=== PATIENT | female | born 1985 | race Two or more races ===

== ENCOUNTER 2017-05-19 13:41 | Emergency (ER) | payer OTHER ==
[2017-05-19 13:52] VITALS: TEMP 98.2; BMI 28.5
[2017-05-19 17:58] LABS: BASO % 0.7 % (0-2.0); EOS % 0.6 % (0-4.5); HEMATOCRIT 40.5 % (32.4-45.2); HEMOGLOBIN 12.9 GM/dL (10.7-15.3); MCH 25.9 pg (25.7-33.7); MCHC 31.8 g/dl (32.0-36.0); MEAN CELL VOLUME 81.5 fl (80-96); MEAN PLT VOLUME 8.2 fl (7.5-11.1); MONO % 7.1 % (3.8-10.2); NEUT % 52.6 % (42.8-82.8); PLATELET COUNT 372 K/MM3 (134-434); RBC 4.97 M/mm3 (3.60-5.2); RDW 15.5 % (11.6-15.6); WHITE BLOOD COUNT 8.6 K/mm3 (4.0-10.0)
[2017-05-19 18:36] LABS: ALBUMIN 4.4 g/dl (3.4-5.0); ANION GAP 8 (8-16); BLOOD UREA NITROGEN 10 mg/dL (7-18); CHLORIDE 105 mmol/L (98-107); CO2 26 mmol/L (21-32); GLUCOSE,RANDOM 106 mg/dL (74-106); POTASSIUM 4.1 mmol/L (3.5-5.1); SODIUM 139 mmol/L (136-145)
[2017-05-19 18:39] LABS: ALK PHOS 105 U/L (45-117); BILIRUBIN,TOTAL 0.3 mg/dL (0.2-1.0); CREATININE 0.7 mg/dL (0.55-1.02); SGOT/AST 23 U/L (15-37); SGPT/ALT 34 U/L (12-78); TOT PROT 8.1 g/dl (6.4-8.2)
--- NOTE | 2017-05-19 18:39 | PDOC ---
History of Present Illness - General Chief Complaint: Pain Stated Complaint: RT SIDE PAIN Time Seen by Provider: 05/19/17 15:56 History Source: Patient Exam Limitations: No Limitations - History of Present Illness Travel History: No Initial Comments: 05/19/17 18:35 32-year-old female presents the ED with complaints of nausea for the past 2 days now associated with right abdominal pain radiating to her right back without fever, chills, change in urine pattern, change in bowel pattern, abdominal distention, headache, or vomiting. Patient states history of cholecystectomy and denies change in menses. Patient denies recent travel, recent illness, recent sick contacts. Timing/Duration: reports: intermittent Quality: reports: mild, cramping Abdominal Pain Onset Location: reports: RLQ, periumbilical Pain Radiation: reports: flank, back Activities at Onset: reports: none Aggravating Factors: improves with: None Alleviating Factors: improves with: None Past History - Travel Traveled outside of the country in the last 30 days: No - Past Medical History Allergies/Adverse Reactions: Allergies Allergy/AdvReac Type Severity Reaction Status Date / Time aspirin Allergy Mild Hives Verified 05/19/17 13:49 mushrooms Allergy Severe Itching Uncoded 05/19/17 13:49 Home Medications: Ambulatory Orders Phentermine HCl 37.5 mg PO DAILY 05/19/17 Asthma: No Cancer: No Cardiac Disorders: No COPD: No Diabetes: No HTN: No Seizures: No Thyroid Disease: No - Surgical History Cholecystectomy: Yes - Suicide/Smoking/Psychosocial Hx Smoking History: Never smoked Have you smoked in the past 12 months: No Number of Cigarettes Smoked Daily: 0 Information on smoking cessation initiated: No Hx Alcohol Use: No Drug/Substance Use Hx: No Substance Use Type: None Hx Substance Use Treatment: No Patient Lives Alone: No Lives with/in: spouse/SO Review of Systems - Review of Systems Able to Perform ROS?: Yes Constitutional: No: Symptoms Reported HEENTM: No: Symptoms Reported Respiratory: No: Symptoms reported Cardiac (ROS): No: Symptoms Reported ABD/GI: Yes: Nausea, Abdominal cramping : No: Symptoms Reported Musculoskeletal: No: Symptoms Reported Integumentary: No: Symptoms Reported Neurological: No: Symptoms reported Endocrine: No: Symptoms Reported Hematologic/Lymphatic: No: Symptoms Reported *Physical Exam - Vital Signs Last Vital Signs Temp Pulse Resp BP Pulse Ox 98.2 F 98 H 18 109/66 100 05/19/17 13:49 05/19/17 13:49 05/19/17 13:49 05/19/17 13:49 05/19/17 13:49 - Physical Exam General Appearance: Yes: Nourished, Appropriately Dressed. No: Apparent Distress HEENT: negative: Pale Conjunctivae Neck: positive: Normal Thyroid, Supple Respiratory/Chest: positive: Lungs Clear, Normal Breath Sounds. negative: Respiratory Distress, Accessory Muscle Use Cardiovascular: positive: Regular Rhythm, Regular Rate. negative: Murmur Gastrointestinal/Abdominal: positive: Soft, Tenderness (no RUQ tenderness. Positive right periumbilical right lower quadrant right suprapubic tenderness. Patient had no rebound no guarding. Noted right flank and mild right CVA tenderness.) Musculoskeletal: positive: CVA Tenderness (R) (mildout) Integumentary: positive: Normal Color, Warm, Moist Neurologic: positive: Motor Strength 5/5 (ambulatory) ED Treatment Course - LABORATORY CBC & Chemistry Diagram: 05/19/17 17:42 05/19/17 17:42 - ADDITIONAL ORDERS Additional order review: 05/19/17 17:42 RBC 4.97 MCV 81.5 MCHC 31.8 L RDW 15.5 MPV 8.2 Neutrophils % 52.6 Lymphocytes % 39.0 D Monocytes % 7.1 Eosinophils % 0.6 Basophils % 0.7 Medical Decision Making - Medical Decision Making 05/19/17 18:39 Patient with sudden onset of right periumbilical pain this morning after eating breakfast. Patient with history of cholecystectomy. Patient treatment reproducible) local pain right lower quadrant without positive McBurney's and mild right suprapubic pain. Will rule out UTI, renal colic, . Patient ordered for CBC, comp, lipase , urinalysis urine . will consider imaging once labs are resulted. 05/19/17 18:42 Laboratory Tests 05/19/17 05/19/17 17:42 17:42 WBC 8.6 Hgb 12.9 Hct 40.5 Plt Count 372 D Neutrophils % 52.6 Sodium 139 Potassium 4.1 Chloride 105 Carbon Dioxide 26 Anion Gap 8 BUN 10 Creatinine 0.7 Random Glucose 106 Total Bilirubin 0.3 D AST 23 ALT 34 05/19/17 19:07 Laboratory Tests 05/19/17 17:08 Lipase 198 *DC/Admit/Observation/Transfer - Referrals Referrals: Joel Morrow MD [Primary Care Provider] - - Patient Instructions - Post Discharge Activity
[2017-05-19 19:11] LABS: HCG,QUALITATIVE URINE NEGATIVE
[2017-05-19 19:13] LABS: URINE APPEARANCE CLEAR; URINE BILIRUBIN NEGATIVE (NEGATIVE); URINE BLOOD 3+ (NEGATIVE); URINE COLOR STRAW; URINE GLUCOSE (UA) NEGATIVE (NEGATIVE); URINE KETONE NEGATIVE (NEGATIVE); URINE LEUK ESTERASE 1+ (NEGATIVE); URINE NITRITE NEGATIVE (NEGATIVE); URINE PROTEIN NEGATIVE (NEGATIVE); URINE UROBILINOGEN NEGATIVE mg/dL (0.2-1.0)
[2017-05-19 19:18] LABS: EPI CELLS RARE /HPF (FEW); URINE MUCUS RARE
--- NOTE | 2017-05-19 19:48 | PDOC ---
ED Treatment Course - LABORATORY CBC & Chemistry Diagram: 05/19/17 17:42 05/19/17 17:42 - ADDITIONAL ORDERS Additional order review: Laboratory Results 05/19/17 05/19/17 05/19/17 18:40 17:42 17:08 Sodium 139 Potassium 4.1 Chloride 105 Carbon Dioxide 26 Anion Gap 8 BUN 10 Creatinine 0.7 Creat Clearance w eGFR > 60 Random Glucose 106 Calcium 9.0 Total Bilirubin 0.3 D AST 23 ALT 34 Alkaline Phosphatase 105 Total Protein 8.1 Albumin 4.4 Lipase 198 Urine Color Straw Urine Appearance Clear Urine pH 5.0 D Ur Specific [place] 1.006 Urine Protein Negative Urine Glucose (UA) Negative Urine Ketones Negative Urine Blood 3+ H Urine Nitrite Negative Urine Bilirubin Negative Urine Urobilinogen Negative Ur Leukocyte Esterase 1+ H Urine WBC (Auto) 12 Urine RBC (Auto) <1 Ur Epithelial Cells Rare Urine Mucus Rare Urine HCG, Qual Negative 05/19/17 17:42 RBC 4.97 MCV 81.5 MCHC 31.8 L RDW 15.5 MPV 8.2 Neutrophils % 52.6 Lymphocytes % 39.0 D Monocytes % 7.1 Eosinophils % 0.6 Basophils % 0.7 Progress Note - Progress Note Progress Note: I have received report from NARCISA Hoffman regarding this patient. Pt's initial chief complaint: nausea with right abdominal pain radiating to right back. Pt's work up completed prior to sign out: labs Pt treatment given from prior staff: none Pt plan to be completed: awaiting UA Dispo: pending Medical Decision Making - Medical Decision Making A/P: 32 y/o female with nausea x 2 days. Initially assessed by NARCISA Hoffman. Her abdominal pain was not reproducible on exam. She is refusing all medication in the ER. NO urinary complaints. UA has resulted with 1+ leuks with 12 WBCs. Will discharge to home with rx for macrobid to treat UTI. Also suggested Motrin for pain. Gave her return precautions for abdominal pain. The patient is ok with this plan. The patient verbalizes understanding of all instructions, has no further questions and is awaiting discharge. *DC/Admit/Observation/Transfer Diagnosis at time of Disposition: UTI (urinary tract infection) Qualifiers: Urinary tract infection type: acute cystitis Hematuria presence: with hematuria Qualified Code(s): N30.01 - Acute cystitis with hematuria Abdominal pain Qualifiers: Abdominal location: generalized Qualified Code(s): R10.84 - Generalized abdominal pain - Discharge Dispostion Disposition: HOME Condition at time of disposition: Good - Prescriptions Prescriptions: Nitrofurantoin Monohyd/M-Cryst [Macrobid -] 100 mg PO BID #14 capsule - Referrals Referrals: Joel Morrow MD [Primary Care Provider] - Call tomorrow - Patient Instructions Printed Discharge Instructions: DI for Urinary Tract Infection (UTI), DI for Abdominal Pain-Adult Additional Instructions: Discharge Instructions: -you have a urinary tract infection -A prescription for an antibiotic has been sent to your pharmacy; please take as prescribed -Drink lots of fluids -Take Motrin for pain if needed -Return to the ER if you develop any worsening or concerning symptoms, including uncontrollable vomiting, fevers, etc. - Post Discharge Activity Forms/Work/School Notes: Back to Work
[2017-05-19 20:34] VITALS: PULSE 80
[2017-05-19 20:43] VITALS: BP 101/66
--- NOTE | 2017-05-24 08:35 | PDOC ---
Patient Follow-up (Call Back) - Post ED Follow - Up Condition at time of discharge: Good Disposition at time of original discharge: HOME Reason for Call Back: Abnwl. 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
== END 2017-05-19 20:43 | disposition home or self-care (01) ==
LOC: JER 13:41
DX: N30.01 Acute cystitis with hematuria (principal)
CPT/HCPCS: 36415; 80053; 81003; 81015; 83690; 84703; 85025; 87086; 87186; 99282-25

== ENCOUNTER 2017-12-22 18:02 | Emergency (ER) | payer OTHER ==
[2017-12-22 18:09] VITALS: BP 110/59; PULSE 85; TEMP 99.1; BMI 27.2
[2017-12-22 18:55] LABS: URINE APPEARANCE CLEAR; URINE BILIRUBIN NEGATIVE (<2.0 mg/dL); URINE COLOR LTYELLOW; URINE GLUCOSE (UA) NEGATIVE (NEGATIVE); URINE KETONE NEGATIVE (NEGATIVE); URINE LEUK ESTERASE NEGATIVE (NEGATIVE); URINE NITRITE NEGATIVE (NEGATIVE); URINE PROTEIN NEGATIVE (NEGATIVE); URINE UROBILINOGEN NEGATIVE mg/dL (0.2-1.0)
--- NOTE | 2017-12-22 18:56 | PDOC ---
History of Present Illness - General Chief Complaint: Lightheaded Stated Complaint: Blood Pressure Problem Time Seen by Provider: 12/22/17 18:19 History Source: Patient, Parent(s) Exam Limitations: No Limitations - History of Present Illness Travel History: No Initial Comments: 12/22/17 18:58 Him to emergency department with complaints of intermittent dizziness, lightheadedness, sometimes associated with hypotension. States headache, unilateral or bilateral weakness, visual changes, or any other neurologic change. is a lightheaded and fogginess that spontaneously resolves. has brother at home who was diabetic, borrowed his fingerstick machine and checked her blood sugar one noted to be 90 Denies recent fever, URI symptoms , no one at home is sick. Denies history of headaches or trauma. Has taken no medication for resolution nor has she discussed with health-care provider. Last full physical was over 2 years ago. 12/22/17 19:00 Timing/Duration: reports: constant, getting worse Quality: reports: mild Alleviating Factors: improves with: None Past History - Travel Traveled outside of the country in the last 30 days: No Close contact w/someone who was outside of country & ill: No - Past Medical History Allergies/Adverse Reactions: Allergies Allergy/AdvReac Type Severity Reaction Status Date / Time aspirin Allergy Mild Hives Verified 12/22/17 18:06 mushrooms Allergy Severe Itching Uncoded 12/22/17 18:06 Home Medications: Ambulatory Orders NK [No Known Home Medication] 12/22/17 Asthma: No Cancer: No Cardiac Disorders: No COPD: No Diabetes: No HTN: No Seizures: No Thyroid Disease: No - Surgical History Cholecystectomy: Yes - Immunization History Immunization Up to Date: Yes - Suicide/Smoking/Psychosocial Hx Smoking History: Never smoked Have you smoked in the past 12 months: No Number of Cigarettes Smoked Daily: 0 Hx Alcohol Use: No Drug/Substance Use Hx: No Substance Use Type: None Hx Substance Use Treatment: No Review of Systems - Review of Systems Able to Perform ROS?: Yes Is the patient limited Prydeinig proficient: Yes Constitutional: Yes: Symptoms Reported, See HPI, Malaise. No: Chills, Fever HEENTM: Yes: See HPI. No: Symptoms Reported, Eye Pain, Blurred Vision Respiratory: Yes: See HPI. No: Symptoms reported, Cough, Shortness of Breath, Wheezing ABD/GI: No: Symptoms Reported Musculoskeletal: Yes: See HPI. No: Symptoms Reported, Back Pain Integumentary: Yes: See HPI. No: Symptoms Reported Neurological: Yes: Symptoms reported, See HPI, Dizziness. No: Headache, Numbness, Unsteady Gait All Other Systems: Reviewed and Negative *Physical Exam - Vital Signs Last Vital Signs Temp Pulse Resp BP Pulse Ox 99.1 F 85 15 110/59 100 12/22/17 18:07 12/22/17 18:07 12/22/17 18:07 12/22/17 18:07 12/22/17 18:07 - Physical Exam General Appearance: Yes: Nourished, Appropriately Dressed. No: Apparent Distress HEENT: positive: BEAU (pale ), Normal ENT Inspection, Normal Voice, TMs Normal, Pharynx Normal, Other Neck: positive: Supple. negative: Tender, Lymphadenopathy (R), Lymphadenopathy (L) Respiratory/Chest: positive: Lungs Clear, Normal Breath Sounds Cardiovascular: positive: Regular Rhythm Gastrointestinal/Abdominal: positive: Normal Bowel Sounds, Soft. negative: Tender Musculoskeletal: positive: Normal Inspection Extremity: positive: Normal Capillary Refill, Normal Inspection, Normal Range of Motion Integumentary: positive: Dry, Warm, Pale Neurologic: positive: boil off worker II-XII NML intact, Fully Oriented, Alert, Normal Mood/ Affect, Normal Response, Motor Strength 5/5 Progress Note - Progress Note Progress Note: FS 97 Patient with intermittent and spontaneous resolving lightheadedness. May be hypotensive on occasion, may have incidence of hypoglycemia. Preliminary exam and fingerstick/vital signs/urinalysis negative for any significant past knowledge he. Have recommended follow-up with PMD for thorough physical exam and possible referral. *DC/Admit/Observation/Transfer Diagnosis at time of Disposition: Light-headedness - Discharge Dispostion Disposition: HOME Condition at time of disposition: Stable Decision to Admit order: No - Referrals Referrals: Joel Morrow MD [Primary Care Provider] - Jocelyn Vigil MD [Staff Physician] - - Patient Instructions Printed Discharge Instructions: DI for Dizziness-Nonvertigo Additional Instructions: Rest, avoid heavy lifting or strenuous activity until symptoms have resolved Keep well hydrated; water/Gatorade/teas/soups Continue [id number] medications for symptomatic relief: Tylenol or ibuprofen for fever and pain, other old fashion treatments. CAll for appointment and be seen at [facility] this week for further follow-up and potential treatment and testing Return to emergency department for worsening symptoms, fevers greater than 101.5 , any occurrence of symptoms including cough, ear or throat pain, shortness of breath or other problems. - Post Discharge Activity Forms/Work/School Notes: Back to Work, Parent(s) Back to Work Note
== END 2017-12-22 20:10 | disposition home or self-care (01) ==
LOC: JERFT 18:02
DX: I95.9 Hypotension, unspecified (principal); R42 Dizziness and giddiness
CPT/HCPCS: 81003; 82962; 84703; 99281-25

== ENCOUNTER 2018-11-25 04:02 | Emergency (ER) | payer OTHER ==
[2018-11-25 04:16] VITALS: BP 100/62; PULSE 81; TEMP 97.8; BMI 31.4
--- NOTE | 2018-11-25 04:20 | PDOC ---
History of Present Illness - General Chief Complaint: Pain, Acute Stated Complaint: PAIN,LT SHOULDER Time Seen by Provider: 11/25/18 04:19 History Source: Patient Exam Limitations: No Limitations - History of Present Illness Initial Comments: Pt is a 33 yo F, with no significant PMH, who presents with L shoulder pain x3 months which has worsened over the past 3 days. Pt states the pain now radiates down the pinky side of the arm, and felt numbness after she was sleeping on that arm tonight. Pt has taken tylenol and motrin with minimal relief. Pt denies any trauma or inciting event to the L shoulder. Pt denies any fevers/ chills, headache, vision changes, syncope, chest pain, palpitations, SOB, nausea /vomiting, abdominal pain, urinary symptoms, diarrhea/constipation, or leg swelling. Allergies: NKDA PCP: Moi Social: Pt denies any cigarette, alcohol, or drug use. Pt denies any recent travel or sick contacts. Surgical: no relevant history. Family: no relevant history. 11/25/18 06:37 Past History - Travel Traveled outside of the country in the last 30 days: No Close contact w/someone who was outside of country & ill: No - Past Medical History Allergies/Adverse Reactions: Allergies Allergy/AdvReac Type Severity Reaction Status Date / Time aspirin Allergy Mild Hives Verified 11/25/18 04:14 mushrooms Allergy Severe Itching Uncoded 11/25/18 04:14 Home Medications: Ambulatory Orders Guaifenesin AC [Robitussin AC] 10 ml PO BID PRN #100 ml MDD 20 03/27/18 Asthma: No Cancer: No Cardiac Disorders: No COPD: No Diabetes: No HTN: No Seizures: No Thyroid Disease: No - Surgical History Cholecystectomy: Yes - Immunization History Immunization Up to Date: Yes - Suicide/Smoking/Psychosocial Hx Smoking History: Never smoked Have you smoked in the past 12 months: No Number of Cigarettes Smoked Daily: 0 Information on smoking cessation initiated: No Hx Alcohol Use: No Drug/Substance Use Hx: No Substance Use Type: None Hx Substance Use Treatment: No Review of Systems - Review of Systems Able to Perform ROS?: Yes Is the patient limited Fijian proficient: No Constitutional: Yes: Weight Stable. No: Chills, Diaphoresis, Fever, Loss of Appetite, Malaise, Weakness HEENTM: No: Blurred Vision, Double Vision, Nose Congestion, Throat Pain, Throat Swelling, Difficulty Swallowing Respiratory: No: Cough, Orthopnea, Shortness of Breath Cardiac (ROS): No: Chest Pain, Edema, Irregular Heart Rate, Lightheadedness, Palpitations, Syncope, Chest Tightness ABD/GI: No: Constipated, Diarrhea, Nausea, Poor Appetite, Poor Fluid Intake, Vomiting : No: Burning, Dysuria, Frequency, Pain, Urgency Musculoskeletal: Yes: See HPI, Joint Pain. No: Back Pain, Joint Swelling, Muscle Pain, Muscle Weakness, Neck Pain, Joint Stiffness Integumentary: No: Bruising, Change in Color, Rash Neurological: No: Headache, Numbness, Paresthesia, Weakness, Unsteady Gait, Dizziness Psychiatric: No: Sleep Pattern Change, Change in Appetite Endocrine: No: Increased Urine, Change in Weight Hematologic/Lymphatic: No: Anemia, Blood Clots, Easy Bleeding, Easy Bruising All Other Systems: Reviewed and Negative *Physical Exam - Vital Signs Last Vital Signs Temp Pulse Resp BP Pulse Ox 97.8 F 81 20 100/62 98 11/25/18 04:14 11/25/18 04:14 11/25/18 04:14 11/25/18 04:14 11/25/18 04:14 - Physical Exam Comments: Vitals stable, pt afebrile. Pt in NAD, normal body habitus. Pt alert and oriented x3. care information associate generally intact, muscular strength and sensation intact. Triceps and biceps reflexes intact b/l. No midline spinal tenderness, step-offs, or crepitus. TTP over lateral L shoulder, limited abduction. Head normocephalic, atraumatic. Eyes PERRLA, EOMI. Oropharynx without erythema or exudates, no LAD b/l. No nasal congestion, hearing intact. Clear heart sounds, S1/S2, no JVD, b/l pedal edema, or heart murmur. Clear lung sounds, no respiratory distress, wheezes, crackles, or accessory muscle use. No abdominal or CVA tenderness to palpation, no rebound, no guarding. Abdomen soft, non-distended, and with normoactive bowel sounds. Skin without jaundice or rash. 11/25/18 06:45 Medical Decision Making - Medical Decision Making Pt was seen at bedside, also will be seen by attending Dr. Hardy. Pt presenting with chronic L shoulder pain. test negative, will evaluate with x-ray of L shoulder to eval for fracture. Provided 15 mg IM toradol and lidocaine patch for improvement of pain. Will continue to reassess pt and monitor for symptomatic improvement. X-ray with no acute fracture D/c home with PCP f/u. Return precautions provided. 11/25/18 06:47 *DC/Admit/Observation/Transfer Diagnosis at time of Disposition: Left shoulder pain Qualifiers: Chronicity: chronic Qualified Code(s): M25.512 - Pain in left shoulder - Discharge Dispostion Disposition: HOME Condition at time of disposition: Good Decision to Admit order: No - Referrals Referrals: Cooper Prater MD [Primary Care Provider] - - Patient Instructions Printed Discharge Instructions: DI for Shoulder Pain Additional Instructions: You were seen in the ER today for left shoulder pain. The results of your imaging today were normal. Please follow-up with your primary care doctor within 1-2 days to discuss your visit and make sure your symptoms have improved. Please return to the ER if you have any worsening pain, development of fevers or chills, loss of consciousness, inability to tolerate food or fluids , or any other concerns. - Post Discharge Activity
--- NOTE | 2018-11-25 04:23 | PDOC ---
Attending Attestation - Resident Resident Name: Janny Cardenas - ED Attending Attestation I have performed the following: I have examined & evaluated the patient, The case was reviewed & discussed with the resident, I agree w/resident's findings & plan - HPI HPI: 11/25/18 05:16 see resident hpi - Physicial Exam PE: 11/25/18 05:16 agree with resident exam - Medical Decision Making 11/25/18 05:16 33 yo with right shoulder pain, atraumatic plan for x ray, NSAIDS and ortho follow up
[2018-11-25] MEDS ORDERED: KETOROLAC TROMETHAMINE 15 MG/ML VIAL IM ONE (05:11)
[2018-11-25] MEDS ORDERED: LIDOCAINE 5% TOPICAL PATCH TP ONE (05:11)
[2018-11-25] MEDS ORDERED: KETOROLAC TROMETHAMINE 15 MG/ML VIAL ONE (05:35)
[2018-11-25] MEDS ORDERED: LIDOCAINE 5% TOPICAL PATCH ONE (05:35)
[2018-11-25] MEDS ORDERED: LIDOCAINE PATCH REMOVAL MC SCH (22:00)
== END 2018-11-25 06:32 | disposition home or self-care (01) ==
LOC: JER 04:02
PROC: 3E0233Z Introduction of Anti-inflammatory into Muscle, Percutaneous Approach (ICD-10-PCS; principal; 2018-11-25)
DX: M25.512 Pain in left shoulder (principal); Z88.6 Allergy status to analgesic agent
CPT/HCPCS: 73030-TC-LT-FY; 84703; 99281-25